=== PATIENT | female | born 1945 | race African-American/Black ===

== ENCOUNTER → 2016-03-30 | Outpatient (CLI) | payer OTHER ==
[~2016-03-30] MED LIST: ASPIRIN325 PO; COMBIVENT INH; HYDROCODON-ACE1 EAC6 PO; KEFLEX500 MG PO; LORTAB 5 MG/5001 TA1 PO; NORVASC 5 MG TAB5 MG OR; NORVASC 5 MG TAB5 MG PO; NOVOLIN 70100 UNIT/5 SQ; OXYBUTYNIN 5 MG5 M2 PO; PROMETHAZI6.25 MG/2 PO; SIMVASTATIN40 MG PO; TOPROL XL50 MG PO
== END ==
LOC: HYPER 03-15 07:05
DX: I87.2 Venous insufficiency (chronic) (peripheral) (principal); L97.511 Non-pressure chronic ulcer of other part of right foot limited to breakdown of skin; E11.69 Type 2 diabetes mellitus with other specified complication; R60.0 Localized edema; I73.9 Peripheral vascular disease, unspecified; Z79.4 Long term (current) use of insulin; F17.210 Nicotine dependence, cigarettes, uncomplicated

== ENCOUNTER → 2016-04-27 | Outpatient (CLI) | payer OTHER | LOC: HYPER 07:10 | DX: S81.802D Unspecified open wound, left lower leg, subsequent encounter (principal); E11.51 Type 2 diabetes mellitus with diabetic peripheral angiopathy without gangrene; I10 Essential (primary) hypertension; I87.2 Venous insufficiency (chronic) (peripheral); Z86.73 Personal history of transient ischemic attack (TIA), and cerebral infarction without residual deficits; F17.210 Nicotine dependence, cigarettes, uncomplicated; Z72.89 Other problems related to lifestyle; X58.XXXD Exposure to other specified factors, subsequent encounter ==

== ENCOUNTER → 2016-06-21 | Outpatient (CLI) | payer OTHER | LOC: HYPER 07:09 | DX: E11.622 Type 2 diabetes mellitus with other skin ulcer (principal); L97.811 Non-pressure chronic ulcer of other part of right lower leg limited to breakdown of skin; R60.0 Localized edema; E11.51 Type 2 diabetes mellitus with diabetic peripheral angiopathy without gangrene; I87.2 Venous insufficiency (chronic) (peripheral); I10 Essential (primary) hypertension; F17.210 Nicotine dependence, cigarettes, uncomplicated; Z79.4 Long term (current) use of insulin; Z86.73 Personal history of transient ischemic attack (TIA), and cerebral infarction without residual deficits; Z89.429 Acquired absence of other toe(s), unspecified side; Z72.89 Other problems related to lifestyle ==

== ENCOUNTER → 2016-07-19 | Outpatient (CLI) | payer OTHER | LOC: HYPER 07:08 | DX: E11.622 Type 2 diabetes mellitus with other skin ulcer (principal); L97.811 Non-pressure chronic ulcer of other part of right lower leg limited to breakdown of skin; E11.51 Type 2 diabetes mellitus with diabetic peripheral angiopathy without gangrene; I87.2 Venous insufficiency (chronic) (peripheral); I69.352 Hemiplegia and hemiparesis following cerebral infarction affecting left dominant side; I10 Essential (primary) hypertension; F17.210 Nicotine dependence, cigarettes, uncomplicated; Z79.4 Long term (current) use of insulin; Z72.89 Other problems related to lifestyle ==

== ENCOUNTER → 2016-08-16 | Outpatient (CLI) | payer OTHER | LOC: HYPER 08-06 14:02 | DX: E11.621 Type 2 diabetes mellitus with foot ulcer (principal); L97.521 Non-pressure chronic ulcer of other part of left foot limited to breakdown of skin; I89.0 Lymphedema, not elsewhere classified; I10 Essential (primary) hypertension; E11.51 Type 2 diabetes mellitus with diabetic peripheral angiopathy without gangrene; I87.2 Venous insufficiency (chronic) (peripheral); F17.200 Nicotine dependence, unspecified, uncomplicated; Z79.4 Long term (current) use of insulin; Z86.73 Personal history of transient ischemic attack (TIA), and cerebral infarction without residual deficits; Z89.429 Acquired absence of other toe(s), unspecified side; Z72.89 Other problems related to lifestyle ==

== ENCOUNTER → 2016-08-22 | Outpatient (CLI) | payer OTHER | LOC: MRI 14:08 | PROVIDERS: Emergency Medicine | DX: L97.529 Non-pressure chronic ulcer of other part of left foot with unspecified severity (principal) ==

== ENCOUNTER → 2016-09-06 | Outpatient (CLI) | payer OTHER | LOC: HYPER 07:11 | DX: E11.621 Type 2 diabetes mellitus with foot ulcer (principal); I87.2 Venous insufficiency (chronic) (peripheral); L97.521 Non-pressure chronic ulcer of other part of left foot limited to breakdown of skin; E11.51 Type 2 diabetes mellitus with diabetic peripheral angiopathy without gangrene; R60.0 Localized edema; I10 Essential (primary) hypertension; Z79.4 Long term (current) use of insulin; Z86.73 Personal history of transient ischemic attack (TIA), and cerebral infarction without residual deficits; Z72.89 Other problems related to lifestyle; Z89.429 Acquired absence of other toe(s), unspecified side ==

== ENCOUNTER → 2016-09-27 | Outpatient (CLI) | payer OTHER | LOC: HYPER 06:58 | DX: E11.621 Type 2 diabetes mellitus with foot ulcer (principal); L97.521 Non-pressure chronic ulcer of other part of left foot limited to breakdown of skin; S91.102D Unspecified open wound of left great toe without damage to nail, subsequent encounter; E11.51 Type 2 diabetes mellitus with diabetic peripheral angiopathy without gangrene; I87.2 Venous insufficiency (chronic) (peripheral); I10 Essential (primary) hypertension; G81.94 Hemiplegia, unspecified affecting left nondominant side; I89.0 Lymphedema, not elsewhere classified; R26.9 Unspecified abnormalities of gait and mobility; F17.200 Nicotine dependence, unspecified, uncomplicated; Z86.73 Personal history of transient ischemic attack (TIA), and cerebral infarction without residual deficits; Z89.429 Acquired absence of other toe(s), unspecified side; Z79.4 Long term (current) use of insulin; Z72.89 Other problems related to lifestyle; X58.XXXD Exposure to other specified factors, subsequent encounter ==

== ENCOUNTER → 2016-10-12 | Outpatient (CLI) | payer OTHER | LOC: HYPER 07:12 | DX: E11.621 Type 2 diabetes mellitus with foot ulcer (principal); I87.2 Venous insufficiency (chronic) (peripheral); L97.521 Non-pressure chronic ulcer of other part of left foot limited to breakdown of skin; I89.0 Lymphedema, not elsewhere classified; R60.0 Localized edema; E11.51 Type 2 diabetes mellitus with diabetic peripheral angiopathy without gangrene; F17.200 Nicotine dependence, unspecified, uncomplicated; Z79.4 Long term (current) use of insulin; Z86.73 Personal history of transient ischemic attack (TIA), and cerebral infarction without residual deficits; Z72.89 Other problems related to lifestyle; Z89.429 Acquired absence of other toe(s), unspecified side ==

== ENCOUNTER 2016-11-06 09:30 | Inpatient (IN) | payer OTHER ==
[~2016-11-06] VITALS: Ht 172.7 cm; Wt 57.9 kg
--- NOTE | ~2016-11-06 | HC ---
[facility] [place] [address] CONSULTATION Name: CAPRI BOSS Room #: 457-P [facility] IN .R.#: [id number] Admission: 11/06/16 Attend Phys: Diomedes Logan DO Discharge: Date of : 49 Report #: [id number] THIS REPORT FOR: //name// CC: Diomedes FISHER PCP DATE OF SERVICE: 11/06/2016 INFECTIOUS DISEASE CONSULTATION ATTENDING PHYSICIAN: Dr. Logan. REASON FOR EVALUATION: Necrotizing foot infection, probably extends deeper than the soft tissue. HISTORY OF PRESENT ILLNESS: Chart reviewed, the patient examined. This is a 71-year-old female with diabetes mellitus type 2. She apparently has known vasculopathy, has had chronic wound involving her left foot, specifically the plantar site, been followed by the wound care who over the course of the last 4-5 days had progressive weakness and poor appetite. She suspects significant weight loss, although it is difficult to ascertain. It is unclear if she has had fevers. Denies dyspnea, abdominal-related complaints. She is at least mildly encephalopathic. On evaluation, she was noted to have a marked leukocytosis with white count 37,000, mildly elevated lactic acid to 2.7. CT of the lower extremity showed subcutaneous and deep gas noted throughout the foot extends to the joint space, located throughout the tarsal bone to a calcaneus, cuboid, also the distal tibia, posterolateral extension to ____ regions throughout the deep tissues structures of the foot. Chest x-ray, nothing acute, has been empirically on broad-spectrum therapy with vancomycin, piperacillin, and tazobactam. Has been evaluated by Surgery, recommended urgent intervention. To this point, she has refused, unclear as to the specific reason, although she has been consistent. ALLERGIES: None known. MEDICATIONS: As noted above, oxybutynin, aspirin, amlodipine, vancomycin, Zosyn, insulin. PAST MEDICAL HISTORY: Diabetes mellitus type 2, insulin requiring; hypertension; has cerebrovascular disease with previous stroke; is nonambulatory; long-standing diabetic foot ulcer. SOCIAL HISTORY: Smoke a half a pack a day tobacco. Occasional ethanol, no illicit drug use. FAMILY HISTORY: Noncontributory. [facility] [address] [place] [address] CONSULTATION Name: CAPRI BOSS Room #: 457-P [facility] IN [facility].#: [id number] Admission: 11/06/16 Attend Phys: Diomedes Logan DO Discharge: Date of : 49 Report #: [id number] REVIEW OF SYSTEMS: As above. PHYSICAL EXAMINATION: GENERAL: She appears chronically ill, almost cachectic, undernourished, in mild distress. She is lethargic. VITAL SIGNS: Temperature 98.1, pulse 103, respirations 16, blood pressure 136/81. SKIN: Warm, dry. NECK: Supple. LUNGS: Diminished breath sounds. A few scattered crackles. HEART: Regular. Borderline tachycardic and has a soft systolic murmur. ABDOMEN: Soft. There are no apparent peritoneal signs. EXTREMITIES: Left foot has plantar ulcers, extensive ____ noted at the site. There is clear malodor, clearly changes are suggestive of ischemia as well. ASSESSMENT: Necrotizing infection involving the left foot. The patient with diabetes. I think there is clear evidence of deeper involvement at this point. Really definitive treatment would be surgical, likely requiring leg amputation. At this point, she is refusing. We will continue our broad-spectrum antimicrobial therapy for presumed polymicrobial etiology including some anaerobes. I deeply concerned about this is a life-threatening type infection, did voice that to her and she was adamant she did not want surgery and we will see if we can improve her situation with conservative measures. <ELECTRONICALLY SIGNED> By: Evan Dale MD 11/07/16 0808 1730 2201 Evan Dale MD /nt
--- NOTE | ~2016-11-06 | HC ---
[facility] [place] [address] CONSULTATION Name: CAPRI BOSS Room #: 457-P [facility] IN M.R.#: [id number] Admission: 11/06/16 Attend Phys: Diomedes Logan DO Discharge: Date of : 49 Report #: [id number] THIS REPORT FOR: //name// CC: Diomedes PINO DATE OF SERVICE: 11/06/2016 REASON FOR CONSULTATION: Gangrene of left foot in a diabetic patient well known to Dr. Wayne Curtis. HISTORY OF PRESENT ILLNESS: The patient is a patient of Dr. Wayne Curtis at [facility]. She has been seen in the [facility] wound care clinic since at least August 2015 with edema with ulcerations of the lower legs and problems with diabetic foot ulcers. Most recently on September 06 the patient was seen in [facility] with a necrotic wound on the left plantar foot which had a foul odor and some wound on the left great toe tip from trauma. Wound was treated with some improvement mid September, but it was noted that there was some exposed tendon. The patient was seen again in the clinic on October 12. There was some foul odor on the dressing when the dressing was removed with some exposed tendons. The patient did present herself to the Emergency Room today at [facility]. She has scheduled appointment with Dr. Wayne Curtis for tomorrow, November 08, however, felt that her foot had worsened with more drainage and foul odor, felt that she should not wait until the clinic appointment. I was called to see in consultation by the Emergency Room physician. Prior to my arriving, Dr. Reza Whitaker has seen the patient and did feel that based on the condition of her foot with maryann gangrene of the left foot, a left below-knee amputation would be required; however, the patient would not consent to this at this time, wished to speak with her family members and her side laster. PAST MEDICAL HISTORY: 1. Diabetes mellitus type 2. 2. Edema of lower extremities with wounds. 3. History of left-sided hemiplegia. 4. Hypertension. 5. Peripheral vascular disease of the lower extremities. 6. Chronic venous insufficiency of lower extremities. ALLERGIES: No known drug allergies. MEDICATIONS: Include Lortab, Combivent Respimat, amlodipine, regular insulin, Novolin insulin, oxybutynin, Lortab, oxycodone, doxycycline, Bactrim. REVIEW OF SYSTEMS: The patient noticed a foul odor from the foot. The [place] [address] CONSULTATION Name: CAPRI BOSS Room #: 457-P [facility] IN .R.#: [id number] Admission: 11/06/16 Attend Phys: Diomedes Logan DO Discharge: Date of : 49 Report #: [id number] LABORATORY DATA: Today, white blood count 37,600. Creatinine 1.2, BUN ____. PHYSICAL EXAMINATION: GENERAL: Shows a chronically ill-appearing -[place]er female who is alert, lucid and conversant. VITAL SIGNS: Temperature 98.2, blood pressure 133/70, heart rate 102. HEENT: Mucous membranes are somewhat dry. LUNGS: Respirations are unlabored. ABDOMEN: Soft. EXTREMITIES: Shows edema of her left lower leg and left foot, there is a distinct foul odor. Open wounds are present on the patient's left foot with some purulent foul-smelling drainage. Examination of the left foot shows a 2.5 x 3 cm open ulcer on the plantar aspect of the foot with foul odor. Clinically, this appeared to be gangrenous. This was associated swelling of the foot, ankle, and lower leg. IMPRESSION AND PLAN: Gangrene of left foot with possible necrotizing soft tissue infection. White blood count 37,600 in a patient with insulin-dependent diabetes and known peripheral vascular disease of that extremity. Dr. Reza Whitaker, orthopedic surgeon has counseled the patient that bony amputation would be advisable as a limb salvaging and life saving procedure. I agree with that assessment. The patient is deciding whether she will allow an amputation, wishes to consult with family members and her side laster. The patient will be admitted with broad-spectrum IV antibiotic coverage and consult infectious disease, vigorous IV hydration while she decides. Wound will be dressed with Silvadene and a dry dressing. Wound care team will follow and notify Dr. Curtis. <ELECTRONICALLY SIGNED> By: Mateus Nunez MD 11/10/16 1338 1711 10 Mateus Nunez MD /nt
--- NOTE | ~2016-11-06 | O ---
[facility] [place] [address] OPERATIVE REPORT Name: CAPRI BOSS Room #: 457-P [facility] IN M.R.#: [id number] Admission: 11/06/16 Attend Phys: Diomedes Logan DO Discharge: 11/12/16 Date of : 49 Report #: [id number] THIS REPORT FOR: //name// CC: FAM unknown Wayne Curtis DATE OF SERVICE: 11/07/2016 PREOPERATIVE DIAGNOSIS: Left leg gangrene. POSTOPERATIVE DIAGNOSIS: Left leg gangrene. PROCEDURE: Left below the knee amputation. SURGEON: Dakota Chatterjee M.D. ANESTHESIA: General. ESTIMATED BLOOD LOSS: 20 mL. DRAINS: One Hemovac drain was placed. TOURNIQUET TIME: 45 minutes. DESCRIPTION OF PROCEDURE: The patient brought to the operating room where she was placed under general anesthesia. Once under adequate general anesthesia, her left lower extremity was prepped and draped in sterile manner. A fishmouth incision about the mid portion of the mid to distal third of the tibia was then made. A sharp dissection was carried down to the bone. In the posterior compartment of the leg, there was purulence identified. We then proceeded to identify the posterior tibial vessels and these were then clamped and subsequently, the tibia and the fibula were transected with the oscillating saw and beveled anteriorly. The wound and leg was then irrigated copiously. The posterior tibial vessels were suture ligated with 0 silk suture. Pulsatile lavage was utilized to irrigate the wound. Any bleeding vessels were cauterized. The wound was irrigated copiously and closed over a Hemovac drain with #1 Vicryl in the deep fascia, 2-0 Vicryl and subcutaneous tissues and brittaney for the skin. The wounds were dressed with Xeroform, 4 x 4s, and sterile soft compressive dressing was placed. Tourniquet was let down approximately 45 minutes. There were no complications from the procedure. The patient tolerated the procedure well and went to the recovery room without incident. By: 1149 [id number] Dakota Chatterjee MD /reyes
--- NOTE | ~2016-11-06 | HC ---
[facility] [place] [address] CONSULTATION Name: CAPRI BOSS Room #: 457-P [facility] IN .R.#: [id number] Admission: 11/06/16 Attend Phys: Diomedes Logan DO Discharge: Date of : 47 Report #: [id number] THIS REPORT FOR: //name// CC: Diomedes FISHER PCP DATE OF SERVICE: 11/08/2016 HISTORY OF PRESENT ILLNESS: The patient is a 71-year-old -Cuban female with insulin-dependent diabetes mellitus and a prior CVA from 1989 with dense left hemiplegia. She was noted to develop left leg gangrene with cellulitis, sepsis and evidence of a necrotizing infection. She ended up undergoing a left below knee amputation on 11/07/2016. She is continuing to be followed regarding her cellulitis and sepsis and is on IV antibiotics. She is feeling better after the amputation. We are seeing her in rehabilitation medicine consultation. PAST MEDICAL HISTORY: Includes diabetes mellitus and hypertension. She had the past CVA as noted above. History of tobacco abuse. MEDICATIONS: Please see the full medication listing. ALLERGIES: No known drug allergies. SOCIAL HISTORY: Lives in an apartment. There are 2 caregiver that come and stay with her, they work 12 hour shifts. One of the caregivers is a pretty big gentle gentleman who apparently picks her up into the power wheelchair. She is able to get around in the power wheelchair. She is then lifted onto the raised toilet seat. She is able to use some basic ADLs herself including eating and grooming and some limited dressing activities. REVIEW OF SYSTEMS: Do not offer any current complaints of chest pain, shortness of breath, abdominal discomfort. She does have a history of diabetes. Denies any focal pain complaints. PHYSICAL EXAMINATION: GENERAL: A slender 71-year-old -Cuban female in no obvious distress. VITAL SIGNS: Last recorded temperature 98.8, pulse 89, respirations 16, blood pressure 102/65. The patient is alert, pleasant. HEENT: Appeared to be benign. NEUROLOGIC: Cranial nerves are grossly intact. She has functional range of motion of the right upper extremity without focal weakness. Left upper extremity is densely plegic. She does have flexion positioning of her left wrist with some contracture formation and decreased left elbow extension. No volitional movement of the left upper extremity with chronic contracture formation. Left lower extremity reveals the below knee amputation with dressing [facility] [address] [place] [address] CONSULTATION Name: CAPRI BOSS Room #: 457-P [facility] IN ..#: [id number] Admission: 11/06/16 Attend Phys: Diomedes Logan DO Discharge: Date of : 49 Report #: [id number] Right lower extremity reveals a darkened right large toe. No obvious erythema. Appears to have chronic distal lower extremity changes on the right. Sensation was decreased, but present to proprioception of her right large toe. Strength of the right lower extremity is probably a grade 3+ to 4-/5. DTRs were trace to 1. She has decreased sensation in the left upper and left lower extremity to simultaneous stimulation. ASSESSMENT: A 71-year-old -Cuban female with the following problem list: 1. Cellulitis with necrotizing infection, left lower extremity, now status post below-knee amputation, 11/07/2016. 2. Sepsis. 3. Premorbid cerebrovascular accident with left hemiplegia. 4. Insulin-dependent diabetes mellitus. 5. Hypertension. 6. Tobacco abuse. PLAN: Therapy evaluations are underway. She certainly may be a candidate for a short acute in-hospital inpatient rehabilitation stay. We will have her undergo therapy assessments. We will need to assess her current function compared to her premorbid status, any potential equipments, adjustments, etc. We will be glad to follow along with you regarding her rehab therapy needs. By: [id number] Reza Kamara MD /
--- NOTE | ~2016-11-06 | EKG ---
[place] [address] 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: [facility] : 1945 Requested By: Pramod Phipps Order Number: [id number] MD: Nghia Lyon Measurements Intervals [place] Rate: 113 P: 90 OK: 174 QRS: 7 QRSD: 86 T: 159 QT: 383 QTc: 526 Interpretive Statements Sinus tachycardia Ventricular premature complex Consider right atrial enlargement Nonspecific ST and T wave abnormality Prolonged QT interval Compared to ECG 07/06/2010 12:06:58 No significant change was found Electronically Signed On 11-08-2016 12:45:19 CDT by Nghia Lyon [email or web address] <ELECTRONICALLY SIGNED> By: Nghia Lyon MD, [facility] 11/08/16 1245 1132 1132 Nghia Lyon MD, [facility] /EPI
--- NOTE | ~2016-11-06 | S ---
[facility] [place] [address] SURGICAL PATH RPT PROCEDURE Name: MARGARITA BOSS Room #: 457-P ADM IN M.R.#: [id number] Admission: 11/06/16 Date of : 49 Discharge: Report #: [id number] Path Case #: [id number] PATHOLOGY REPORT COLLECTION DATE: 11/07/2016 RECEIVED DATE: 11/07/2016 SUBMITTING PHYS: Dr. Dakota Chatterjee OTHER PHYS: Dr. Diomedes Logan SPECIMEN(S) RECEIVED: A.Left lower leg * * * * * * * * * * * * FINAL DIAGNOSIS: "Left lower leg," amputation: - Skin and subcutaneous tissue with acute and chronic inflammation, necrosis, granulation tissue, fat necrosis, and pseudoepitheliomatous hyperplasia; surgical margin with significant subcutaneous tissue acute inflammation. - Skeletal muscle with focal markedly atrophic changes. - Blood vessels with calcific atherosclerosis. - Previous digit amputation. (CLW:; 11/09/2016) PATHOLOGIST: Lesvia Kelley M.D. REPORT ELECTRONICALLY SIGNED BY: Lesvia Kelley M.D. DATE/TIME: 11/09/2016 21:45 * * * * * * * * * * * * GROSS PATHOLOGY: The specimen is received fresh, labeled "Margarita Boss, left lower leg" and consists of a below the knee amputation specimen measuring 25.2 cm from the margin resection to the medial malleolus and 24.3 cm from the heel to the tip of the great toe. There is a 1.5 cm portion of exposed tibia and 4.2 cm portion of exposed fibula. The soft tissue at the margin has a congested, brown-red appearance. The skin is tellez-brown, thickened and wrinkled. The second toe is absent. The first, third and fourth toes have a brown-black, desiccated appearance. A nail is present on each toe. The leathery, ovoid lesion is noted on the distal end of the first toe measuring 1.8 cm. Along the medial plantar surface an ovoid ulceration is noted measuring 3.3 cm. No additional abnormalities are noted on the external surface. Sectioning shows the soft tissue to have an ulcerated, brown-red, and necrotic appearance. This extends throughout the specimen to within 1.0 cm of the soft tissue margin. The two major arteries show minimal, focal occlusion by bright [address] [address] SURGICAL PATH RPT PROCEDURE Name: GERAMARGARITA Room #: 457-P ADM IN M.R.#: [id number] Admission: 11/06/16 Date of : 49 Discharge: Report #: [id number] Path Case #: [id number] yellow, atheromatous plaque. The stenosis is approximate 5%. No additional abnormalities are noted. Professional [employer] sections are submitted as follows: A1 - soft tissue from margin resection A2 - external lesions A3 - necrotic internal tissues A4 - anterior tibial artery (HASEEB; 11/08/2016) CLINICAL HISTORY: Infected left leg INITIAL CPT CODE(S): A; 00435 Professional services performed by [facility] at [facility] [address], [place] [address] Technical services performed by [facility] at [address] [place] [address], [address], [place] [address]. [facility] [address] [place] [address] PHONE: [phone] DIRECTOR: Cortez Hedrick M.D. * * * END OF REPORT * * *
--- NOTE | ~2016-11-06 | EKG ---
[place] [address] [facility] [place] [place] [address] ELECTROCARDIOGRAM REPORT Name: CAPRI BOSS Room #: 457-P ADM IN M.R.#: [id number] Admission: 11/06/16 Attend Phys: Diomedes Logan DO Discharge: Date of : 49 Report #: [id number] THIS REPORT FOR: //name// 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: [facility] : 1945 Requested By: Pramod Phipps Order Number: [id number] MD: Nghia Lyon Measurements Intervals [place] Rate: 113 P: 86 AL: 184 QRS: 0 QRSD: 102 T: 132 QT: 336 QTc: 461 Interpretive Statements Sinus tachycardia Ventricular premature complex Right atrial enlargement Nonspecific ST and T wave abnormality Baseline wander in lead(s) V2 Compared to ECG 07/06/2010 12:06:58 Ventricular premature complex(es) now present Nonspecific ST and T wave abnormality now present Electronically Signed On 11-08-2016 12:43:29 CDT by Nghia Lyon [email or web address] <ELECTRONICALLY SIGNED> By: Nghia Lyon MD, [facility] 11/08/16 1243 1010 1010 Nghia Lyon MD, [facility] /EPI
--- NOTE | ~2016-11-06 | HC ---
[facility] [place] [address] CONSULTATION Name: CAPRI BOSS Room #: 457-P [facility] IN ..#: [id number] Admission: 11/06/16 Attend Phys: Diomedes Logan DO Discharge: Date of : 47 Report #: [id number] THIS REPORT FOR: //name// CC: Diomedes Logan NO PCP CHIEF COMPLAINT: Gangrenous left foot with necrotizing fascitis. HISTORY OF PRESENT ILLNESS: This frail 71-year-old female with multiple chronic medical problems and severe diabetes has apparently had a progressive left foot wound for the past month. She has been seeing Dr. Wayne Curtis as an outpatient and I believe had some visiting nursing care more recently. I believe she has been on oral antibiotics. The foot has become clearly worse with a clear open wound over the medial aspect and some generalized swelling throughout the foot and leg with drainage and odor. She came to Emergency Room today for further evaluation. She appears to be very frail and weak. She is febrile and her white count is 37,600 with 94% neutrophils. Her hemoglobin is 12.5. Her BUN is elevated at 59 and creatinine minimally elevated at 1.2. Her glucose is markedly elevated at 442 and C-reactive protein is 323 and albumin is markedly diminished at 2.0. She has had an ultrasound study of the extremity, which does not reveal evidence of DVT. CT scan of the foot reveals bony abnormalities and gas in the soft tissues consistent with a gangrenous change and necrotizing fasciitis extending up to the hind foot and ankle level. PHYSICAL EXAMINATION: At the time of my evaluation, she is alert and oriented and states that she is able to make her own medical decisions. She notes that she has had progressive left foot problems over the past month and understands that they are clearly more severe. However, at this point, she is entirely unwilling to consider any surgical treatment. She denies any other areas of significant discomfort. She denies problems in the upper extremities nor the opposite right lower extremity. Objectively, she is rather cachectic, but skin and soft tissues in other areas appear to be intact. The left lower extremity demonstrates some brawny edema from the knee down to the foot. The foot is somewhat erythematous. There is an open malodorous wound over the medial border of the foot consistent with gangrenous change. Pulses are not palpable. ASSESSMENT AND PLAN: I have had a very lengthy and very direct discussion with the patient explaining that this is a very serious and progressive infection, which undoubtedly require surgical treatment and may result in spreading the infection, further sepsis and . I have explained that the foot is clearly beyond any possibility of salvage and therefore, I would suggest a below-knee amputation at this point. I have suggested going ahead on an emergent basis and I have already called the OR crew and anesthesia in for that purpose. Despite this very direct discussion, she is adamantly opposed to any surgery today. I have explained that the infection will undoubtedly get worse and her generalized sepsis will undoubtedly get worse as well. I suspect this may result in other organ failure and may result in her . She states she understands this and [facility] [address] [place] [address] CONSULTATION Name: CAPRI BOSS Room #: 457-P [facility] IN .R.#: [id number] Admission: 11/06/16 Attend Phys: Diomedes Logan DO Discharge: Date of : 47 Report #: [id number] these comments have been witnessed by both the nurse and Emergency Room physician who will document this in the medical record as well. I have tried to discuss with family members or anyone else she might ask to be involved in this decision. I have reached her cousin, Shirley Gudino in [place] and I have had this same discussion with her and also they have talked over the phone together for quite some time. Despite this discussion, the patient remains adamantly opposed to any surgery and has therefore refused surgical treatment against medical advice. She plans to talk further with family and family state they will try to come to [place] today if possible. She is also waiting to talk with her product marketing programs manager from [facility] and we have tried to make that phone call on several occasions, but have thus far been unsuccessful in reaching him. Given this, I do not think we have much else to do aside from supportive care with antibiotics and general medical management. We will admit her for that purpose and her care will be directed by Dr. Bailey who has noted also the severity of these issues. I have explained that we can proceed with surgical amputation at any point that she wishes, but my preference would certainly be to proceed more quickly this afternoon rather than wait until later. She states she will be unwilling to even consider surgery until tomorrow after she has had a chance to visit further with family and her product marketing programs manager. Given this, I will plan to be available and we will discuss with the patient and other members whenever they are available. In general, however, I feel surgical amputation is the most reasonable option. <ELECTRONICALLY SIGNED> By: Reza Whitaker MD 11/07/16 0710 [id number] [id number] Reza Whitaker MD /nt
[2016-11-06 09:31] VITALS: BP 133/83
[2016-11-06 11:04] LABS: HEMATOCRIT 39.1 % (37.0-47.0); HEMOGLOBIN 12.5 gm/dL (12.0-15.0); MCH 26.1 pg (26.0-34.0); MCHC 32.1 g/dL (28.0-37.0); MCV 81.5 fL (80.0-100.0); PLATELET COUNT 443 thou/uL (150-400); RDW 14.6 % (10.5-14.5); WBC 37.6 thou/uL (4.0-11.0)
[2016-11-06 11:07] LABS: MANUAL DIFF YES
[2016-11-06 11:13] LABS: CALCIUM 10.7 mg/dL (8.5-10.1); CREATININE 1.2 mg/dL (0.6-1.0); POTASSIUM 3.7 mmol/L (3.5-5.1)
[2016-11-06 11:19] LABS: TOTAL BILIRUBIN 0.5 mg/dL (<0.1-1.0); TOTAL PROTEIN 9.1 g/dL (6.4-8.2)
[2016-11-06 11:57] LABS: URINE BILIRUBIN NEGATIVE (Negative); URINE BLOOD TRACE (Negative); URINE COLOR YELLOW; URINE GLUCOSE-RANDOM* 3+ (Negative); URINE KETONES 1+ (Negative); URINE LEUKOCYTES-REFLEX NEGATIVE (Negative); URINE PROTEIN (DIPSTICK) NEGATIVE (Negative); URINE SPECIFIC GRAVITY <= 1.005 (1.003-1.035)
[2016-11-06 11:59] LABS: ABSOLUTE NEUTROPHILS 36.1 thou/uL (1.4-8.2); METAMYELOCYTES 2 %; TOTAL CELL COUNT 100
[2016-11-06 12:00] LABS: ANISOCYTOSIS SLIGHT
[2016-11-06 13:07] LABS: APTT 28.7 Seconds (24.5-32.8); INR 1.1; PROTIME 11.1 Seconds (9.3-11.4)
[2016-11-06 15:13] VITALS: BP 145/113
[2016-11-06 16:05] VITALS: BP 133/70
[2016-11-06 16:12] VITALS: BP 136/81
[2016-11-06 20:01] VITALS: BP 111/66
[2016-11-07] VITALS (7 sets, daily range): BP systolic 91–129; BP diastolic 51–73
[2016-11-07 07:41] LABS: MCH 25.9 pg (26.0-34.0)
[2016-11-07 07:43] LABS: HEMATOCRIT 32.1 % (37.0-47.0); MCHC 31.5 g/dL (28.0-37.0); MCV 82.1 fL (80.0-100.0); RBC 3.91 mil/uL (4.20-5.00); RDW 14.9 % (10.5-14.5)
[2016-11-07 07:46] LABS: MANUAL DIFF YES
[2016-11-07 07:48] LABS: HEMOGLOBIN 10.1 gm/dL (12.0-15.0); PLATELET COUNT 335 thou/uL (150-400); WBC 40.2 thou/uL (4.0-11.0)
[2016-11-07 07:49] LABS: CALCIUM 9.2 mg/dL (8.5-10.1); CREATININE 0.8 mg/dL (0.6-1.0)
[2016-11-07 07:52] LABS: POTASSIUM 2.5 mmol/L (3.5-5.1)
[2016-11-07 09:36] LABS: METAMYELOCYTES 2 %; MYELOCYTES 1 %; TOTAL CELL COUNT 100
[2016-11-07 09:37] LABS: ANISOCYTOSIS 1+
[2016-11-07 18:21] LABS: MAGNESIUM 1.7 mg/dL (1.8-2.4); POTASSIUM 3.2 mmol/L (3.5-5.1)
[2016-11-08 04:24] VITALS: BP 115/71
[2016-11-08 06:03] LABS: HEMATOCRIT 28.9 % (37.0-47.0); HEMOGLOBIN 9.1 gm/dL (12.0-15.0)
[2016-11-08 08:42] VITALS: BP 102/65
[2016-11-08 09:33] LABS: MCHC 31.3 g/dL (28.0-37.0); MCV 83.1 fL (80.0-100.0); RBC 3.51 mil/uL (4.20-5.00); WBC 35.4 thou/uL (4.0-11.0)
[2016-11-08 09:34] LABS: BUN 17 mg/dL (7-18); CALCIUM 8.5 mg/dL (8.5-10.1); CREATININE 0.5 mg/dL (0.6-1.0); GLUCOSE 72 mg/dL (74-106); PLATELET COUNT 228 thou/uL (150-400)
[2016-11-08 09:35] LABS: MANUAL DIFF YES
[2016-11-08 10:11] LABS: ABSOLUTE NEUTROPHILS 33.6 thou/uL (1.4-8.2); PLATELET ESTIMATE NORMAL; TOTAL CELL COUNT 100
[2016-11-08 10:21] LABS: HEMATOCRIT 29.2 % (37.0-47.0); HEMOGLOBIN 9.1 gm/dL (12.0-15.0)
[2016-11-08 17:14] VITALS: BP 117/75
[2016-11-08 19:59] VITALS: BP 95/61
[2016-11-09 05:18] VITALS: BP 116/74
[2016-11-09 07:09] LABS: HEMATOCRIT 28.5 % (37.0-47.0); MCH 25.8 pg (26.0-34.0); MCHC 31.7 g/dL (28.0-37.0); MCV 81.5 fL (80.0-100.0); PLATELET COUNT 179 thou/uL (150-400); WBC 34.8 thou/uL (4.0-11.0)
[2016-11-09 07:13] LABS: MANUAL DIFF YES
[2016-11-09 07:24] LABS: CREATININE 0.3 mg/dL (0.6-1.0); POTASSIUM 4.1 mmol/L (3.5-5.1)
[2016-11-09 08:25] LABS: ABSOLUTE NEUTROPHILS 33.1 thou/uL (1.4-8.2); METAMYELOCYTES 1 %; TOTAL CELL COUNT 100
[2016-11-09 08:28] VITALS: BP 118/75
[2016-11-09 08:28] LABS: ANISOCYTOSIS SLIGHT
[2016-11-09 12:25] VITALS: BP 111/65
[2016-11-09 15:54] VITALS: BP 111/65
[2016-11-09 16:04] VITALS: BP 88/56
[2016-11-09 21:10] VITALS: BP 108/55
[2016-11-10 03:55] VITALS: BP 115/70
[2016-11-10 06:15] LABS: HEMATOCRIT 26.4 % (37.0-47.0); HEMOGLOBIN 8.5 gm/dL (12.0-15.0); MCH 26.1 pg (26.0-34.0); MCHC 32.2 g/dL (28.0-37.0); RBC 3.26 mil/uL (4.20-5.00); RDW 14.8 % (10.5-14.5); WBC 22.1 thou/uL (4.0-11.0)
[2016-11-10 06:26] LABS: CALCIUM 7.7 mg/dL (8.5-10.1); CREATININE 0.5 mg/dL (0.6-1.0); POTASSIUM 4.4 mmol/L (3.5-5.1)
[2016-11-10 09:53] VITALS: BP 121/59
[2016-11-10 09:56] VITALS: BP 121/59
[2016-11-10 09:57] VITALS: BP 173/88
[2016-11-10 18:32] VITALS: BP 117/85
[2016-11-10 20:01] VITALS: BP 96/59
[2016-11-11 04:11] VITALS: BP 115/65
[2016-11-11 06:37] LABS: CALCIUM 7.7 mg/dL (8.5-10.1); CREATININE 0.6 mg/dL (0.6-1.0); HEMATOCRIT 26.2 % (37.0-47.0); HEMOGLOBIN 8.4 gm/dL (12.0-15.0); MCH 26.4 pg (26.0-34.0); MCHC 32.2 g/dL (28.0-37.0); MCV 81.9 fL (80.0-100.0); POTASSIUM 4.2 mmol/L (3.5-5.1); RBC 3.2 mil/uL (4.20-5.00); RDW 14.9 % (10.5-14.5); WBC 18.2 thou/uL (4.0-11.0)
[2016-11-11 07:43] VITALS: BP 128/72
[2016-11-11 12:21] VITALS: BP 97/57
[2016-11-11 16:02] VITALS: BP 100/60
[2016-11-11 19:30] VITALS: BP 116/73
[2016-11-12 03:45] VITALS: BP 113/61
[2016-11-12 04:36] LABS: HEMATOCRIT 26.1 % (37.0-47.0); HEMOGLOBIN 8.3 gm/dL (12.0-15.0); MCH 26.1 pg (26.0-34.0); MCV 81.6 fL (80.0-100.0); RBC 3.19 mil/uL (4.20-5.00); RDW 14.8 % (10.5-14.5); WBC 16.1 thou/uL (4.0-11.0)
[2016-11-12 04:48] LABS: CALCIUM 7.9 mg/dL (8.5-10.1); CREATININE 0.7 mg/dL (0.6-1.0)
[2016-11-12 07:30] VITALS: BP 114/70
[2016-11-12] MEDS ORDERED: HYDROCODON-ACE1 EAC7 PO (09:14)
[2016-11-12] MEDS ORDERED: NOVOLIN 70100 UNIT/5 SQ (09:14)
[2016-11-12] MEDS ORDERED: AUGMENTIN 875875 MG PO (09:14)
[2016-11-12 09:27] VITALS: BP 111/65
== END 2016-11-12 11:14 | disposition home health service (06) | DRG 853 ==
LOC: ER 09:30 → EROBS 12:43 → 4W 12:43
PROVIDERS: Family Medicine; Orthopaedic Surgery Foot and Ankle Surgery; Physician Assistant
PROC: 0Y6J0Z3 Detachment at Left Lower Leg, Low, Open Approach (ICD-10-PCS; principal; 2016-11-07)
DX: A41.9 Sepsis, unspecified organism (principal); M72.6 Necrotizing fasciitis; E43 Unspecified severe protein-calorie malnutrition; E11.52 Type 2 diabetes mellitus with diabetic peripheral angiopathy with gangrene; L03.116 Cellulitis of left lower limb; I77.2 Rupture of artery; Z68.1 Body mass index [BMI] 19.9 or less, adult; I69.354 Hemiplegia and hemiparesis following cerebral infarction affecting left non-dominant side; I10 Essential (primary) hypertension; E11.65 Type 2 diabetes mellitus with hyperglycemia; F17.210 Nicotine dependence, cigarettes, uncomplicated; I87.2 Venous insufficiency (chronic) (peripheral); Z96.1 Presence of intraocular lens; Z90.49 Acquired absence of other specified parts of digestive tract; Z98.42 Cataract extraction status, left eye; Z79.899 Other long term (current) drug therapy; Z79.4 Long term (current) use of insulin; Z79.82 Long term (current) use of aspirin
CPT/HCPCS: 10045; 27000; 50010; 50101; 50386; 51412; 53000; 53078; 56524; 56525; 57091; 62110; 62900; 70005

== ENCOUNTER 2016-11-23 05:30 | Inpatient (IN) | payer OTHER ==
[~2016-11-23] VITALS: Ht 170.2 cm; Wt 68.0 kg
--- NOTE | ~2016-11-23 | HC ---
[facility] [place] [address] CONSULTATION Name: CAPRI BOSS Room #: 448-P [facility] IN ..#: [id number] Admission: 11/28/16 Attend Phys: Dakota Chatterjee MD Discharge: Date of : 47 Report #: [id number] THIS REPORT FOR: //name// CC: Dakota Chatterjee NO PCP DATE OF SERVICE: 11/29/2016 HISTORY OF PRESENT ILLNESS: This is a 71-year-old female previously known to me who was readmitted for left above knee amputation. 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 She was noted to develop left gangrene and ended up undergoing a left below knee amputation 11/07/2016. She was able to be discharged directly home where she has caregivers paid for the state. She unfortunately developed worsening gangrene of her below knee residual limb and has now undergone a left above-knee amputation on 11/28/2016. We are consulted regarding rehabilitation issues. PAST MEDICAL HISTORY: Includes diabetes mellitus and hypertension. Past CVA as noted above. History of tobacco abuse. MEDICATIONS: Please see the full medication listing. ALLERGIES: No known drug allergies. SOCIAL HISTORY: Lives in an apartment. There are 2 caregivers that come and stay with her and work 12 hour shifts. They are noted to pick her up and put her into the wheelchair. She is then lifted on to her raised toilets. She was able to do some basic ADLs herself including eating and grooming and some limited dressing activities. REVIEW OF SYSTEMS: No current complaints of chest pain, shortness of breath, abdominal discomfort. She has history of diabetes as noted. PHYSICAL EXAMINATION: GENERAL: A 71-year-old -Lebanese female in no obvious distress. VITAL SIGNS: Last recorded temperature 36.8, pulse 103, respirations 16, blood pressure 122/66. The patient is alert. HEENT: Appeared to be benign. NEUROLOGIC: Facies are symmetric. She has functional range of motion of the right upper extremity without focal weakness. EXTREMITIES: Left upper extremities densely plegic. She has some flexion positioning of her left wrist with some contracture formation and decreased left elbow extension. Left lower extremity reveals the above-knee amputation. She tends to hold that left lower extremity with the hip in a flexed position. Right lower extremity strength is probably a grade 3+ to 4-/5. DTRs are trace [address] [address] CONSULTATION Name: CAPRI BOSS Room #: 448-P [facility] IN [facility].#: [id number] Admission: 11/28/16 Attend Phys: Dakota Chatterjee MD Discharge: Date of : 47 Report #: [id number] to 1. She does have decreased sensation and a stocking distribution and involving proprioception of the right large toe. ASSESSMENT: A 71-year-old female with the following problem list: 1. Gangrene, now status post left above-knee amputation 11/28/2016. 2. Prior left below-knee amputation 11/07/2016. 3. Premorbid cerebrovascular accident with left hemiplegia. 4. Insulin-dependent diabetes mellitus. 5. Hypertension. 6. Tobacco abuse. PLAN: Therapy evaluations are underway. Occupational therapy. She was at a low level premorbidly and had a lot of assistance at her apartment. She was able to return directly home after her below-knee amputation per my review of the records. At this point, we will follow along with you and see how she does. I encouraged her to try to work with the therapists as they come in to see her. Thank you for asking us to assist in this patient's care. <ELECTRONICALLY SIGNED> By: Reza Kamara MD 11/30/16 1232 1453 0525 Reza Kamara MD /[facility]
--- NOTE | ~2016-11-23 | HC ---
[facility] [place] [address] CONSULTATION Name: CAPRI BOSS Room #: 448-P [facility] IN .R.#: [id number] Admission: 11/28/16 Attend Phys: Dakota Chatterjee MD Discharge: Date of : 47 Report #: [id number] THIS REPORT FOR: //name// CC: Dakota Chatterjee NO PCP INFECTIOUS DISEASE CONSULTATION REASON FOR CONSULTATION: I was asked to evaluate concerning left leg gangrene. HISTORY OF PRESENT ILLNESS: The patient was known to me from her previous hospital stay last month where she underwent a left below-knee amputation for gangrene of her foot. She returns now for progressive disease involving the stump. It was noted that during her previous admission, she had a Proteus bacteremia. The tissues to her stump did not heal adequately. She therefore comes back for AKA. She was treated with cefazolin initially, then on Augmentin. She was placed back on cefazolin today. Her initial surgery was on 11/07/2016. No fever, chills or sweats. The patient complains of pain in her lower extremity. She has underlying history of diabetes and peripheral vascular disease. ALLERGIES: None known. MEDICATIONS: As noted on her MAR, now on cefazolin. PAST MEDICAL HISTORY: Diabetes, hypertension, stroke with left hemiparesis. SOCIAL HISTORY: She is a smoker of cigarettes, minimal alcohol intake. Lives alone, has caregivers. FAMILY HISTORY: Noncontributory. REVIEW OF SYSTEMS: No cough, sputum, nausea, vomiting or diarrhea. PHYSICAL EXAMINATION: VITAL SIGNS: Afebrile and hemodynamically stable. GENERAL: She was alert and cooperative. HEENT: Unremarkable. CHEST: Clear. HEART: Regular. ABDOMEN: Soft. EXTREMITIES: Left ROSETTA was wrapped and dry with a Hemovac in place. She had a dry ulcer over the dorsum of her right first toe. LABORATORY STUDIES: Pending. IMPRESSION: A 71-year-old with diabetes and peripheral vascular disease with [facility] [place] [address] CONSULTATION Name: CAPRI BOSS Room #: [address] [place] [address] [place] [facility].#: [id number] Admission: 11/28/16 Attend Phys: Dakota Chatterjee MD Discharge: Date of : 47 Report #: [id number] nonhealing left below-knee amputation, now postop day today above-knee amputation. PLAN: Recommend continuing with Saray, pending review of her operative site. We will obtain laboratory studies including CBC and chemistry. Control blood glucose levels. <ELECTRONICALLY SIGNED> By: Delio Porter MD 12/01/16 1136 1515 0408 Delio Porter MD /nt
--- NOTE | ~2016-11-23 | O ---
[facility] [place] [address] OPERATIVE REPORT Name: CAPRI BOSS Room #: 448-P [facility] IN M.R.#: [id number] Admission: 11/28/16 Attend Phys: Dakota Chatterjee MD Discharge: Date of : 47 Report #: [id number] THIS REPORT FOR: //name// CC: Dakota FISHER PCP DATE OF SERVICE: 11/28/2016 PREOPERATIVE DIAGNOSIS: Left leg gangrene. POSTOPERATIVE DIAGNOSIS: Left leg gangrene. PROCEDURE: Left vtwwr-qpv-ksvt amputation. SURGEON: Dakota Chatterjee M.D. ANESTHESIA: General. ESTIMATED BLOOD LOSS: 200 mL. DRAINS: One Hemovac drain was placed. TOURNIQUET TIME: No tourniquets. COMPLICATIONS: No complications. PATTERNMAKER PLASTER: JCARLOS Pool, critical for positioning and safe performance of the procedure. DESCRIPTION OF PROCEDURE: The patient brought to the operating room, where she was placed under general anesthesia. Once under adequate general anesthesia, her left lower extremity was prepped and draped in a sterile manner. The extremity was elevated and a fishmouth-type incision was then made about the oux-su-pucswh shaft of the femur. This was dissected down to the fascia, which was then incised with the Bovie cautery and exposure was made of the femoral vessels. These were then tagged and ligated with 0 silk suture. The femur itself was then exposed completely with a Cruz elevator and an oscillating saw was then used to transect the femur through its kry-iu-elaghg shaft junction. Once transected, the adductors were then myodesed to the femur with #1 Vicryl suture. The wound was then irrigated copiously and closed with #1 Vicryl in the deep fascia, 2-0 Vicryl in subcutaneous tissues and brittaney were used for the skin. The wound was dressed with Xeroform, 4 x 4s and a sterile soft compressive dressing was placed. A Hemovac drain had been placed prior to wound [address] [address] OPERATIVE REPORT Name: CAPRI BOSS Room #: 448-[facility].#: [id number] Admission: 11/28/16 Attend Phys: Dakota Chatterjee MD Discharge: Date of : 47 Report #: [id number] closure. There were no complications from the procedure. The patient tolerated the procedure well and went to the recovery room without incident. <ELECTRONICALLY SIGNED> By: Dakota Chatterjee MD 12/01/16 1544 [id number] [id number] Dakota Chatterjee MD /nt
--- NOTE | ~2016-11-23 | S ---
[facility] [place] [address] SURGICAL PATH RPT PROCEDURE Name: MARGARITA BOSS Room #: 448-P AD[facility] IN M.R.#: [id number] Admission: 11/28/16 Date of : 49 Discharge: Report #: [id number] Path Case #: [id number] PATHOLOGY REPORT COLLECTION DATE: 11/28/2016 RECEIVED DATE: 11/28/2016 SUBMITTING PHYS: Dr. Dakota Chatterjee OTHER PHYS: SPECIMEN(S) RECEIVED: A.Left above knee amputation * * * * * * * * * * * * FINAL DIAGNOSIS: Extremity, left, above knee amputation: - Viable skin and subcutaneous tissue present at proximal margin of specimen. - Previous amputation stump with ulceration and acute ulcer exudate. - Blood vessels with partial occlusion by calcified atherosclerosis. - Bone underlying ulceration with fibrosis of marrow space. PATHOLOGIST: Francisco Fisher M.D. REPORT ELECTRONICALLY SIGNED BY: Francisco Fisher M.D. DATE/TIME: 11/30/2016 13:30 * * * * * * * * * * * * GROSS PATHOLOGY: Received wrapped in a regular biohazard bag, labeled "Margarita Boss and above knee amputation", is a above the knee amputation stump measuring 21 cm from a previous resection margin to knee, 6.5 cm from knee to anterior skin, with a 4 cm in length femoral bone extending beyond the soft tissue margin. The skin, soft tissue, and bone at the margin appear viable. The previous resection site at the distal shows and shows yellow-francisco necrotic soft tissue measuring 18 x 3 cm with metal brittaney. Sectioning through this show an edematous necrotic soft tissue. The skin is tellez-brown hairless. The vascular resection margin is patent. Maintenance Repairer sections submitted as follows: A1 skin, soft tissue and vascular resection margin (section with black ink = posterior) A2 previous resection margin A3-4 necrotic soft tissue to underlying bone after decalcification (SWS; 11/29/2016) [address] [address] SURGICAL PATH RPT PROCEDURE Name: MARGARITA BOSS Room #: 448-P [facility] IN [facility].#: [id number] Admission: 11/28/16 Date of : 49 Discharge: Report #: [id number] Path Case #: [id number] CLINICAL HISTORY: Infected left leg INITIAL CPT CODE(S): A; 48396 Professional services performed by [facility] [address], [place] [address] Technical services performed by [facility] at [address] [place] [address], [facility] [address] [address]. [facility] [place] [address] PHONE: [phone] DIRECTOR: Cortez Hedrick M.D. * * * END OF REPORT * * *
[~2016-11-23 05:30] MED LIST changes: +AUGMENTIN 875875 MG PO; +HYDROCODON-ACE1 EAC7 PO
[2016-11-25] MEDS ORDERED: NOVOLIN 70100 UNIT/1 SUBQ (10:42)
[2016-11-25] MEDS ORDERED: OXYCONTIN10 M1 PO (10:43)
[2016-11-28 08:00] VITALS: BP 120/69
[2016-11-28 12:05] VITALS: BP 115/78
[2016-11-28 15:00] VITALS: BP 118/104
[2016-11-28 15:15] VITALS: BP 117/57
[2016-11-28 19:55] VITALS: BP 110/54
[2016-11-29 00:10] VITALS: BP 111/63
[2016-11-29 05:50] VITALS: BP 127/78
[2016-11-29 08:22] VITALS: BP 122/66
[2016-11-29 10:39] LABS: HEMATOCRIT 23.7 % (37.0-47.0); HEMOGLOBIN 7.7 gm/dL (12.0-15.0); MCH 26.4 pg (26.0-34.0); MCHC 32.4 g/dL (28.0-37.0); MCV 81.4 fL (80.0-100.0); RBC 2.92 mil/uL (4.20-5.00); RDW 15.5 % (10.5-14.5); WBC 8.2 thou/uL (4.0-11.0)
[2016-11-29 11:55] LABS: ALBUMIN 1.7 g/dL (3.4-5.0); CALCIUM 8.6 mg/dL (8.5-10.1); CREATININE 0.7 mg/dL (0.6-1.0); POTASSIUM 3.4 mmol/L (3.5-5.1); TOTAL BILIRUBIN 0.4 mg/dL (<0.1-1.0); TOTAL PROTEIN 7.2 g/dL (6.4-8.2)
[2016-11-29 16:21] VITALS: BP 116/69
[2016-11-29 18:55] VITALS: BP 124/82
[2016-11-30 03:34] VITALS: BP 102/48
[2016-11-30 08:11] VITALS: BP 117/60
[2016-11-30 14:08] LABS: ABSOLUTE NEUTROPHILS 6.4 thou/uL (1.4-8.2); PLATELET COUNT 252 thou/uL (150-400)
[2016-11-30 14:10] LABS: BASOPHILS 0.5 % (0.0-2.0); EOSINOPHILS 1.2 % (0.0-3.0); HEMOGLOBIN 6.5 gm/dL (12.0-15.0); LYMPHOCYTES 12.5 % (24.0-44.0); MCH 26.6 pg (26.0-34.0); MCHC 32.7 g/dL (28.0-37.0); MCV 81.1 fL (80.0-100.0); MONOCYTES 7.9 % (1.0-8.0); POLYS 77.9 % (36.0-66.0); RBC 2.46 mil/uL (4.20-5.00); RDW 15.4 % (10.5-14.5); WBC 8.2 thou/uL (4.0-11.0)
[2016-11-30 14:23] LABS: MANUAL DIFF NO
[2016-11-30 17:21] VITALS: BP 106/64
[2016-11-30 20:10] VITALS: BP 127/72
[2016-12-01 04:38] VITALS: BP 125/66
[2016-12-01 07:00] LABS: ABSOLUTE NEUTROPHILS 6.3 thou/uL (1.4-8.2)
[2016-12-01 07:02] LABS: BASOPHILS 0.3 % (0.0-2.0); EOSINOPHILS 2.1 % (0.0-3.0); HEMATOCRIT 20.8 % (37.0-47.0); HEMOGLOBIN 6.8 gm/dL (12.0-15.0); LYMPHOCYTES 18.5 % (24.0-44.0); MCH 26.5 pg (26.0-34.0); MCHC 32.6 g/dL (28.0-37.0); MCV 81.4 fL (80.0-100.0); MONOCYTES 8.7 % (1.0-8.0); PLATELET COUNT 269 thou/uL (150-400); POLYS 70.4 % (36.0-66.0); RBC 2.56 mil/uL (4.20-5.00); RDW 15.5 % (10.5-14.5); WBC 8.9 thou/uL (4.0-11.0)
[2016-12-01 07:21] LABS: MANUAL DIFF NO
[2016-12-01 07:26] LABS: ALBUMIN 1.5 g/dL (3.4-5.0); CALCIUM 8.1 mg/dL (8.5-10.1); CREATININE 0.6 mg/dL (0.6-1.0); POTASSIUM 3.7 mmol/L (3.5-5.1); TOTAL BILIRUBIN 0.2 mg/dL (<0.1-1.0); TOTAL PROTEIN 6.3 g/dL (6.4-8.2)
[2016-12-01 08:00] VITALS: BP 121/57
[2016-12-01 14:55] VITALS: BP 112/63; BP 118/67
[2016-12-01 16:00] VITALS: BP 118/67
[2016-12-01 20:54] VITALS: BP 107/50
[2016-12-02 04:15] VITALS: BP 153/62
[2016-12-02 06:26] LABS: HEMATOCRIT 22.6 % (37.0-47.0); HEMOGLOBIN 7.4 gm/dL (12.0-15.0); MCHC 32.6 g/dL (28.0-37.0); RBC 2.72 mil/uL (4.20-5.00); RDW 15.4 % (10.5-14.5); WBC 10.8 thou/uL (4.0-11.0)
[2016-12-02 06:38] LABS: CALCIUM 7.7 mg/dL (8.5-10.1); CREATININE 0.6 mg/dL (0.6-1.0); MAGNESIUM 1.5 mg/dL (1.8-2.4); POTASSIUM 3.9 mmol/L (3.5-5.1)
[2016-12-02 08:40] VITALS: BP 132/72
[2016-12-02 12:14] VITALS: BP 132/72
[2016-12-02] MEDS ORDERED: OXYCONTIN10 M1 PO (13:28)
[2016-12-02] MEDS ORDERED: COLACE 100 MG100 MG PO (13:29)
[2016-12-02] MEDS ORDERED: PERCOCET PO (13:31)
[2016-12-02 13:53] VITALS: BP 132/72
[2016-12-02 15:26] VITALS: BP 132/72
== END 2016-12-02 15:25 | disposition home health service (06) | DRG 853 ==
LOC: PRE 05:30 → TBA 05:30 → PRE 16:29 → TBA 11-28 06:46 → 4S 11-28 06:46 → PRE 11-28 10:59 → 4S 11-28 12:28
PROVIDERS: Family Medicine; Nurse Practitioner Family
PROC: 0Y680ZZ Detachment at Left Femoral Region, Open Approach (ICD-10-PCS; principal; 2016-11-28)
PROC: 02HV33Z Insertion of Infusion Device into Superior Vena Cava, Percutaneous Approach (ICD-10-PCS; 2016-11-29)
PROC: 30243N1 Transfusion of Nonautologous Red Blood Cells into Central Vein, Percutaneous Approach (ICD-10-PCS; 2016-12-01)
DX: A41.9 Sepsis, unspecified organism (principal); E43 Unspecified severe protein-calorie malnutrition; E11.52 Type 2 diabetes mellitus with diabetic peripheral angiopathy with gangrene; I69.354 Hemiplegia and hemiparesis following cerebral infarction affecting left non-dominant side; F17.210 Nicotine dependence, cigarettes, uncomplicated; Z60.2 Problems related to living alone; I10 Essential (primary) hypertension; Z96.1 Presence of intraocular lens; F32.9 Major depressive disorder, single episode, unspecified; F41.9 Anxiety disorder, unspecified; K59.00 Constipation, unspecified; D64.9 Anemia, unspecified; Z89.512 Acquired absence of left leg below knee; Z79.4 Long term (current) use of insulin; Z98.42 Cataract extraction status, left eye; Z68.23 Body mass index [BMI] 23.0-23.9, adult
CPT/HCPCS: 10102; 27000; 50010; 50101; 50386; 51412; 53000; 56524; 56525; 57091; 62110; 62900; 70005

== ENCOUNTER → 2018-08-21 | Outpatient (CLI) | payer OTHER ==
[~2018-08-21] MED LIST changes: +COLACE 100 MG100 MG PO; +NOVOLIN 70100 UNIT/1 SUBQ; +OXYCONTIN10 M1 PO; +PERCOCET PO
== END ==
LOC: HYPER 06:40
DX: S80.811D Abrasion, right lower leg, subsequent encounter (principal); S80.821D Blister (nonthermal), right lower leg, subsequent encounter; G81.02 Flaccid hemiplegia affecting left dominant side; I10 Essential (primary) hypertension; I73.9 Peripheral vascular disease, unspecified; I87.2 Venous insufficiency (chronic) (peripheral); F17.200 Nicotine dependence, unspecified, uncomplicated; Z86.73 Personal history of transient ischemic attack (TIA), and cerebral infarction without residual deficits; X58.XXXD Exposure to other specified factors, subsequent encounter

== ENCOUNTER → 2018-09-04 | Outpatient (CLI) | payer OTHER | LOC: HYPER 06:43 | DX: S80.811D Abrasion, right lower leg, subsequent encounter (principal); S80.821D Blister (nonthermal), right lower leg, subsequent encounter; I10 Essential (primary) hypertension; I87.2 Venous insufficiency (chronic) (peripheral); I73.9 Peripheral vascular disease, unspecified; G81.02 Flaccid hemiplegia affecting left dominant side; F17.200 Nicotine dependence, unspecified, uncomplicated; Z86.73 Personal history of transient ischemic attack (TIA), and cerebral infarction without residual deficits; X58.XXXD Exposure to other specified factors, subsequent encounter ==

== ENCOUNTER 2019-01-09 16:54 | Inpatient (IN) | payer OTHER ==
[~2019-01-09] VITALS: Ht 170.2 cm; Wt 49.0 kg
[~2019-01-09 16:54] MED LIST changes: -ASPIR 8181 MG PO; -AUGMENTIN 500-1 EACH PO; -CLOPIDOGREL75 MG PO
[2019-01-09 18:00] VITALS: BP 108/43
--- NOTE | 2019-01-09 19:54 | NUR ---
PATIENT IN APPROX. 1730. THIS NURSE WAS NOT GIVEN FORMAL REPORT ON PATIENT. CHARGE NURSE AND METAL TUBE CUTTER STATED THEY WERENT GIVEN REPORT ON PATIENT AND DID NOT KNOW WHY PATIENT WAS HERE. PATIENT WAS BRUNG TO ROOM BY SOMEONE AND DID NOT INFORM FLOOR STAFF. PATIENT WAS CHECKED ON BY THIS NURSE AND VITALS TAKEN BY PRINCIPAL PLANNER. NO SIGNS OF DISTRESS, PATIENT DENIED SOA AND PAIN. PATIENT STATED SHE WANTED SOMETHING TO EAT.
[2019-01-10 00:36] LABS: EOSINOPHILS 4.4 % (0.0-3.0); HEMATOCRIT 31.7 % (37.0-47.0); LYMPHOCYTES 43.6 % (24.0-44.0); MCH 26.7 pg (26.0-34.0); MCHC 31.5 g/dL (28.0-37.0); MCV 84.6 fL (80.0-100.0); MONOCYTES 6.5 % (1.0-8.0); PLATELET COUNT 220 thou/uL (150-400); POLYS 44.5 % (36.0-66.0); RBC 3.75 mil/uL (4.20-5.00); RDW 15.4 % (10.5-14.5); WBC 4.5 thou/uL (4.0-11.0)
[2019-01-10 00:52] LABS: ALBUMIN 3.4 g/dL (3.4-5.0); CALCIUM 9.4 mg/dL (8.5-10.1); CREATININE 1.3 mg/dL (0.6-1.0); MAGNESIUM 1.9 mg/dL (1.8-2.4); POTASSIUM 5.2 mmol/L (3.5-5.1); TOTAL BILIRUBIN 0.2 mg/dL (<0.1-1.0); TOTAL PROTEIN 8.5 g/dL (6.4-8.2)
[2019-01-10 02:20] VITALS: BP 108/43
[2019-01-10 04:04] VITALS: BP 100/59
--- NOTE | 2019-01-10 05:12 | NUR ---
PT CAME UP TO THE UNIT AT 1700.PT ADMINITED WITH ISCHEMIC LEFT RT TOES AND CELLULITIS UNCONTROLLED DIABETES.PT HAS A LT AKA.PT IS A/O X4.PT IS INCONTINENT AND NON AMBULATIORY.PT IS ON OCTAVIO ACCUCHECKS AND ON A LOW CARB DIET.PT PAIN IS CONTROLLED WITH FENTANYL AND OXYCODONE.PT HAS AN IV ACCESS ON RAC WITH 0.9%NS AT 125ML/HR.CONTINUE TO MONITOR PT TILL EOS
[2019-01-10 08:30] VITALS: BP 138/73
[2019-01-10 15:26] VITALS: BP 126/64
--- NOTE | 2019-01-10 17:26 | NUR ---
INITIAL ASSESSMENT: Received high risk nursing referral. SW reviewed chart and spoke with nursing and attending physician. Pt was a direct admission from the wound care office at [facility] due to chronic right toe wounds. Pt with hx of DM/CVA/left BKA. Pt is on IV abx. Podiatry consulted. Pt with possible osteomyelitis of right toe wounds. SW attempted to meet with pt several times this afternoon. Pt was sleeping soundly during time of visit. KEILA spoke with pt's cousin, Shirley, via phone. Introduced role of SW. Pt normally lives at home in [place] area. Pt has been at [facility] for about month for short term rehab. Pt's cousin is unsure if pt will stay there for LTC or return home. senior planner to fax clinical info to [facility] tomorrow. SW will follow up with pt at a later time and assist as needed with discharge planning.
--- NOTE | 2019-01-10 20:32 | NUR ---
Assumed patient care at 0715. Patient's blood sugars have been running low. She has been drinking orange juice and having snacks in between meals due to this. Dr Mike discontinued her scheduled Insulin and has put her on Ensure supplements 3 x's/day. Patient needs prompting to finish these. All other vital signs have been within normal limits. She has been tolerating her IV Antibiotics well. POC followed. On-coming nurse informed about blood sugar readings.
[2019-01-10 20:38] VITALS: BP 98/50
[2019-01-11 00:07] LABS: GLYCOHEMOGLOBIN (HGB A1C) 5.8 % (4.8-5.6)
--- NOTE | 2019-01-11 04:47 | NUR ---
ASSESSMENT: PT REMAIN ALERT AND ORIENT TIMES THREE. PT LIKES TO TALK AND APPEARS TO LIKE HAVING A EAR TO LISTEN TO HER PAST HISTORY AND CURRENT POC. PT REFUSED FENTANYL DURING THE NIGHT, BUT DID REQUEST OXYCODONE WHEN IT WAS DUE. A NEW IV WAS INITATED IN RIGHT IJ, 22 GAUGE. VSS, AFEBRILE. LEFT BKA WAS ELEVATED UPON PILLOWS, LEFT ARM IS FLACCID. RIGHT LE EXT CELLULITIS. WAS ELEVATED UPON PILLOWS. BLOOD SUGAR WAS 100, NO SS REQUIRED. SLOW PROGRESS TOWARDS DC GOALS, WILL CONTINUE TO MONITOR.
[2019-01-11 09:25] VITALS: BP 100/50
--- NOTE | 2019-01-11 14:03 | NUR ---
DISCHARGE PLANNING. POST ACUTE RECOMMENDED FOR PATIENT AT DISCHARGE. PATIENT REFERRAL FAXED TO [facility] PER REQUEST. PATIENT HAS BEEN TO [facility] IN THE PAST AND IS AGREEABLE TO RETURN FOR POST ACUTE CARE NEEDS. CALL PLACED TO MONIQUE [facility] ADMISSIONS TO NOTIFY. VM LEFT FOR [facility] REGARDING PATIENT REFERRAL. AWAITING RESPONSE. FOLLOWING.
--- NOTE | 2019-01-11 15:12 | NUR ---
CLINICAL UPDATE SENT TO [facility]. IT IS ANTICIPATED THAT PT WILL BE HERE OVER THE WEEKEND. CM TO FOLLOW INDICATED WITH DC PLANNING.
[2019-01-11 15:52] VITALS: BP 120/60
[2019-01-11 19:05] VITALS: BP 116/53
--- NOTE | 2019-01-11 20:39 | NUR ---
Assumed pt care this am, pt is confused and only alert to self. Pt is unkept and refuses to be cleaned up. Pt is very needs and would call out numerous times during the day for small things that she would do on her own and find ways to keep staff in the room. Left above the knee amputation, right LE cellulitis and right foot is dislocated. VS have been stable and POC followed. MRI done and consent signed for Lakisha rios on U/S to be done on 01/[address] Benitez. VS have been stable, no signs or verbalizationbs of distress have been noted. POC followed.
--- NOTE | 2019-01-12 06:13 | NUR ---
patient aox4 makes needs known. patient has been npo since midnight. patient right foot has a dressing, dressing is c/d/i. patient incontient pericare and barrier cream applied as needed. patient turned q 2hours as patient can torrelate. pain controlled this shift.patient in bed asleep at this time breathing regular and unlaboured.
[2019-01-12 08:01] VITALS: BP 114/59
[2019-01-12 15:37] VITALS: BP 103/50
[2019-01-12 16:05] LABS: URINE BILIRUBIN NEGATIVE (Negative); URINE BLOOD NEGATIVE (Negative); URINE CLARITY CLEAR; URINE COLOR YELLOW; URINE GLUCOSE-RANDOM* NEGATIVE (Negative); URINE KETONES NEGATIVE (Negative); URINE LEUKOCYTES-REFLEX NEGATIVE (Negative); URINE NITRITE-REFLEX NEGATIVE (Negative); URINE PROTEIN (DIPSTICK) NEGATIVE (Negative); URINE SPECIFIC GRAVITY 1.015 (1.005-1.035); URINE UROBILINOGEN 0.2 E.U./dl (0.2-1.0)
--- NOTE | 2019-01-12 17:18 | NUR ---
Assumed pt care this am, vs stable. Right foot dressing c/d/i/. Pt has been incontinent but was able to collect a urine sample and was sent down to the lab. Pain has been controlled and pt has been sleeping for most of the afternoon. No signs or verbalizations of distress have pamela noted.
[2019-01-12 20:50] VITALS: BP 110/41
[2019-01-13 01:53] VITALS: BP 110/41
--- NOTE | 2019-01-13 06:48 | NUR ---
PT IS A/O X4.PT IS NONAMBULATORY WITH LT BKA .PT REFUSED GABAPENTINE YESTERDAY.PT PAIN MGT WITH FENTANYL AND OXY.PT IS TO BE NPO MIDNIGHT.CONTINUE TO MONITOR TILL EOS
[2019-01-13 08:47] VITALS: BP 132/61
[2019-01-13 13:36] LABS: CALCIUM 9.4 mg/dL (8.5-10.1); CREATININE 0.9 mg/dL (0.6-1.0); POTASSIUM 5.3 mmol/L (3.5-5.1)
[2019-01-13 17:35] VITALS: BP 98/53
--- NOTE | 2019-01-13 19:10 | NUR ---
Assumed pt care this am, pt is non ambulatory with contractures on her right ankle and foot. Some medications in the am were refused and pt stated she knows what she needs and will manage it based on how she feels, all blood sugr checks have been refused. Dressing is c/d/i and changed today. Goldie care done through out the day since pt is incontinent. Pt refuse all interventions and medications to promotea bm and stated she does not want to have a bm to soil herself. Pt still refused heparin and is fully aware of the risks but prefers to take the aspirin. Left sided paralysis is noted, tray set up is required and other assists through out the day. Dressing changed for the IV on the right EJ. Pt refused oral or denture care and a bath. No signs or verbalizations of distress have been noted. POC followed, endorsed to the night nurse, pt is to be npo midnight onwards for her procedure tomorrow. Consent signed and on the chart.
[2019-01-14 05:42] LABS: ABSOLUTE NEUTROPHILS 2.3 thou/uL (1.4-8.2); BASOPHILS 0.6 % (0.0-2.0); EOSINOPHILS 5.2 % (0.0-3.0); HEMATOCRIT 30.3 % (37.0-47.0); HEMOGLOBIN 9.6 gm/dL (12.0-15.0); LYMPHOCYTES 35.1 % (24.0-44.0); MCHC 31.7 g/dL (28.0-37.0); MCV 85.3 fL (80.0-100.0); MONOCYTES 8.4 % (1.0-8.0); PLATELET COUNT 232 thou/uL (150-400); POLYS 50.7 % (36.0-66.0); RBC 3.55 mil/uL (4.20-5.00); RDW 15.4 % (10.5-14.5); WBC 4.6 thou/uL (4.0-11.0)
[2019-01-14 05:55] LABS: ALBUMIN 2.6 g/dL (3.4-5.0); CALCIUM 9.9 mg/dL (8.5-10.1); CREATININE 0.9 mg/dL (0.6-1.0); POTASSIUM 5.6 mmol/L (3.5-5.1); TOTAL BILIRUBIN 0.2 mg/dL (<0.1-1.0); TOTAL PROTEIN 7.3 g/dL (6.4-8.2)
[2019-01-14 06:34] VITALS: BP 134/62
--- NOTE | 2019-01-14 07:31 | NUR ---
PT IS A/O X4.PT REFUSE DOCUSATE AND STATED SHE HAD A LARGE BM.PT WAS NPO MIDNIGHT AND IS TO DO ANGIOGRAM ON RT FOOT THIS MORNING.PT NON AMBULATORY.CONTINUE POC
--- NOTE | 2019-01-14 12:32 | NUR ---
KEILA reviewed chart and spoke with nursing and attending physician. Pt is currently off the unit having an angiogram. Pt may need possible amputation of right toes. business planner to fax clinical updates to [facility]. Tori liaison to do onsite evaluation. KEILA is following to assist as needed with discharge planning.
--- NOTE | 2019-01-14 14:30 | HC ---
[facility] [place] [address] CONSULTATION Name: CAPRI BOSS Room #: 464-P [facility] IN .R.#: [id number] Admission: 01/09/19 Attend Phys: Gwen Mike MD Discharge: Date of : 49 Report #: [id number] THIS REPORT FOR: //name// CC: Gwen MARINA unknown DATE OF SERVICE: 01/11/2019 INFECTIOUS DISEASES CONSULTATION REASON FOR CONSULTATION: Evaluate gangrene of right foot. HISTORY OF PRESENT ILLNESS: The patient is a 73-year-old with peripheral vascular disease, diabetes, hypertension, previous stroke, who had had a left AKA several years ago. She has had issues with wounds to her toes over the last several months. Six months ago, she broke her ankle. She did not have this fixed. She now has a significant ankle deformity. She has no significant pain. Denies any fever, chills or sweats. She presents now due to worsening toe wounds. She was evaluated previously and her physicians recommended amputation. The patient sought further consultation with Dr. Curtis who recommended inpatient care with vascular evaluation. Denies any fever, chills or sweats. Her blood glucose control has been good. She does smoke cigarettes. She has been living in a [facility]. ALLERGIES: None known. MEDICATIONS: Have included amlodipine, oxybutynin, insulin, oxycodone and was started on vancomycin and Zosyn. PAST MEDICAL HISTORY: Diabetes, heart disease, hypertension, COPD, peripheral vascular disease, stroke with left hemiparesis, chronic wounds to her right foot, cataract surgery, cholecystectomy, left lower extremity arterial bypass, left AKA. FAMILY HISTORY: Diabetes, hypertension, vascular disease. SOCIAL HISTORY: Smoker of cigarettes. No significant alcohol intake. Lives in a rehabilitation center. REVIEW OF SYSTEMS: Denies any headache or neurologic change acutely. No mood changes. No bleeding disorder. No adenopathy, no chest pain or palpitations. No cough or sputum production. No GI or complaints. Denies any allergy issues. No other skin issues other than what is noted above. Her diabetes has been under reasonable control. [facility] [address] [address] CONSULTATION Name: CAPRI BOSS Room #: 464-P [facility] IN .R.#: [id number] Admission: 01/09/19 Attend Phys: Gwen Mike MD Discharge: Date of : 49 Report #: [id number] PHYSICAL EXAMINATION: VITAL SIGNS: Afebrile, hemodynamically stable. GENERAL: Alert, pleasant, cooperative. Very thin in nature. SKIN: Few areas of eschar to the right foot and ankle region. No evidence of drainage noted. Toes fourth and fifth did have small wounds present. There was swelling to the toes. No palpable adenopathy. HEENT: Eyes without scleral icterus. Mouth without mucositis. She has dentures. NECK: Supple, with no thyromegaly. LUNGS: Decreased breath sounds bilaterally with no adventitial sounds. HEART: Regular, without murmur, gallop or rub. ABDOMEN: Soft, nontender, no hepatosplenomegaly or mass. EXTREMITIES: With hemiparesis on the left with contractured left upper extremity. AKA on the left. Right lower extremity had varus deformity at the ankle. It was unstable in appearance. Toes were dark in color and swelling, mostly of her fourth and fifth toes. She had a distal amputation of the fourth toe. Sensation was diminished in her foot. Could not palpate any pulses below the knee. Pulse in the femoral region was 1+. BACK: Nontender. GENITORECTAL: Not performed. PSYCHIATRIC: Mood normal with no anxiety or depression symptoms. LABORATORY STUDIES: Reviewed. X-rays reviewed. Blood cultures reviewed. IMPRESSION: 1. A 73-year-old with diabetes and peripheral vascular disease, has evidence of gangrenous changes to her distal right foot. She has a high-grade distal arterial obstructive disease. 2. Diabetes. 3. Right ankle fracture with nonunion. 4. Hypertension. 5. Tobacco use. 6. Previous stroke with left hemiparesis. 7. Previous left above-knee amputation. RECOMMENDATIONS: 1. The patient is to have arteriogram with intervention as appropriate on Monday. We will continue IV antibiotic therapy for gangrenous changes involving her right toes. Hopefully, with revascularization, this will improve. She has fracture nonunion of the tibia and fibula, which is of concern. She states she uses her leg to stand and pivot. Unclear how long this will last for the ankle [address] [address] CONSULTATION Name: CAPRI BOSS Room #: 464-P [facility] IN ..#: [id number] Admission: 01/09/19 Attend Phys: Gwen Mike MD Discharge: Date of : 49 Report #: [id number] does appear unstable. Ultimately, expectation with all these comorbidities will require at least a BKA. She was not interested in this opinion at the present time. 2. Discontinue tobacco use. 3. Control diabetes. <ELECTRONICALLY SIGNED> By: Delio Porter MD 01/14/19 1430 [id number] Delio Porter MD /nt
--- NOTE | 2019-01-14 19:46 | NUR ---
Assumed patient care at 0715. Patient was non-compliant this am, refusing labwork and blood sugars. Patient tried to get out of going to get her Angiogram as well but this nurse convinced her to go after some education. Patient has a manx dressing in left lower abdomen that is clean, dry et intact; area is soft. Patient has been compliant and pleasant this evening. Report given to TRUNG Rodriguez.
[2019-01-14 21:32] VITALS: BP 140/68
[2019-01-15 05:46] LABS: BASOPHILS 0.5 % (0.0-2.0); EOSINOPHILS 3.6 % (0.0-3.0); HEMATOCRIT 31.8 % (37.0-47.0); LYMPHOCYTES 13.4 % (24.0-44.0); MCH 26.9 pg (26.0-34.0); MCHC 31.6 g/dL (28.0-37.0); MCV 85.3 fL (80.0-100.0); MONOCYTES 7.2 % (1.0-8.0); PLATELET COUNT 213 thou/uL (150-400); POLYS 75.3 % (36.0-66.0); RBC 3.73 mil/uL (4.20-5.00); RDW 15.2 % (10.5-14.5); WBC 5.3 thou/uL (4.0-11.0)
[2019-01-15 06:11] LABS: ALBUMIN 2.7 g/dL (3.4-5.0); CALCIUM 9.7 mg/dL (8.5-10.1); CREATININE 1.1 mg/dL (0.6-1.0); MAGNESIUM 1.8 mg/dL (1.8-2.4); PHOSPHORUS 4.5 mg/dL (2.5-4.9); TOTAL BILIRUBIN 0.2 mg/dL (<0.1-1.0); TOTAL PROTEIN 7.8 g/dL (6.4-8.2)
--- NOTE | 2019-01-15 07:43 | NUR ---
progress pt sleeping first part of shift awoke with verbal stimuli but returned to sleep after around 2 am she woke and requested pain medication. oxycodone given x 1 scheduled fentanyl given as ordered with effect. repositioned self in bed refused accucheck and protonix. continue poc.
[2019-01-15 19:30] VITALS: BP 88/49
--- NOTE | 2019-01-15 19:51 | NUR ---
Assumed patient care at 0715. Patient's vital signs have been stable throughout this shift. Patient has refused to get her blood sugar taken x's 1, has refused her Insulin x's 1. Patient did allow her blood sugar to be taken before dinnertime; she did not require Insulin coverage at this time. Patient requested her Fentanyl this am, as well as her Nicotine Patch. This nurse educated patient that Fentanyl is scheduled with the next dose being due at 1300, and, told her thather Nicotime Patch is scheduled at HS. Patient argued about this. When this nurse brought Fentanyl to patient at 1300; patient refused it, stating, "I will call you when I need it." This dose was wasted as patient did not call back requesting it. Report given to TRUNG Rodriguez.
[2019-01-16 00:14] VITALS: BP 104/51
--- NOTE | 2019-01-16 06:08 | NUR ---
ADMIT PT ADMITTED FROM ED TO 4 [facility]EST FOR BILATERAL GREAT TOES OSTEOMYELITIS. ORIENTED TO ROOM CALL LIGHT SYSTEM AND POC. PT R/V UNDERSTANDING.PT ANXIOUS AND REPORTS PAIN AT A LEVEL OF 8 TO 10 15 MG OXYCODONE GIVEN WITH SOME EFFECT. IVF'S INITIATED, AND IV ANTIBIOTICS GIVEN ORDERED. BP HIGH 160'/102 THEN ON RECHECK 157/117 NOTIFIED CHRISTEN ROJAS AND ORDERED TO GIVE AM NORVASC EARLY HYDRALAZINE WAS GIVEN WITH NO EFFECT. MEDICATED PT FOR PAIN SETTLING DOWN A LITTLE VERY ANXIOUS REGARDING DIAGNOSES AND POC.
[2019-01-16 07:43] VITALS: BP 128/62
[2019-01-16 07:52] VITALS: BP 128/62
--- NOTE | 2019-01-16 08:13 | NUR ---
PROGRESS PT A/O X4 AWAKE MOST OF SHIFT USING CALL LIGHT FREQUENTLY. PAIN CONTROLLED WITH SCHEDULED MEDS AND PRN OXYCODONE. REFUSES ACCUCHECKS AND SSI, INCONTINENT OF URINE X 4 LAST NIGHT HOPES TO DC HOME NOW THAT ANTIBIOTICS WILL BE ORAL.
[2019-01-16] MEDS ORDERED: AUGMENTIN 500-1 EACH PO (09:54)
[2019-01-16] MEDS ORDERED: ASPIR 8181 MG PO (09:54)
[2019-01-16] MEDS ORDERED: CLOPIDOGREL75 MG PO (09:54)
--- NOTE | 2019-01-16 11:59 | NUR ---
Assumed pt care at 7am.Pt in bed alert and oriented x4.Assessment completed. vss.Pt refused insulin at breakfast and finger stick at lunch.Pt tolerated med and diet.Complete bath and bed change done early this shift.Dr Moncada here,dc order noted.Report off to Tahmina joseph at [facility].Pt will be dc between 1530 &1600 today per van.[place] Setter assisted pt with packing.Pain med given for generalized body ache with partial relief.Will continue to monitor.
--- NOTE | 2019-01-16 13:07 | NUR ---
CARE TEAM INDICATED THAT PT IS MEDICALLY STABLE TO DC BACK TO [facility] THIS DAY. CM NOTIFIED PT AND SHE WAS VERY EXCITED TO BE RETURNING. PT HAS OWN WC HERE AT HOSPITAL. PT INDICATED SHE WOULD NOTIFY HER COUSIN OF HER DC. CHART COPY ORDERED. ORDERS TO BE FAXED. [facility] ARRANGED FOR [id number]. NO OTHER CM INTERVENTION INDICATED. CASE CLOSED.
--- NOTE | 2019-01-27 11:57 | HC ---
[facility] [place] [address] CONSULTATION Name: CAPRI BOSS Room #: 464-P [facility] IN M.R.#: [id number] Admission: 01/09/19 Attend Phys: Gwen Mike MD Discharge: 01/16/19 Date of : 49 Report #: [id number] THIS REPORT FOR: //name// CC: Gwen Mike [facility] unknown DATE OF SERVICE: 01/14/2019 HISTORY OF PRESENT ILLNESS: The patient is a 73-year-old female patient admitted to the hospital with ulcerations on her right toes. She has been in the rehab facility for the last month. She is nonambulatory due to previous CVA and left-sided weakness, and has a prior left above-knee amputation. She has previously been seen for her wounds at [facility] months ago and recently been seen here at [facility] for wound care. PAST MEDICAL HISTORY: Positive for history of cholecystectomy, type 2 diabetes mellitus, hypertension, stroke with left-sided weakness, persistent chronic ulcers on the right foot, previous ulcers on the left leg, status post left below knee amputation. She has a history of peripheral arterial disease. She is a current smoker. SOCIAL HISTORY: The patient denies alcohol use. Smokes half pack of cigarettes for the last 25 years. FAMILY HISTORY: Positive for diabetes and hypertension. ALLERGIES: None. MEDICATIONS: Include oxycodone, amlodipine, oxybutynin and insulin. REVIEW OF SYSTEMS: CONSTITUTIONAL: The patient denies fever, chills or weight loss. NEUROLOGICAL: The patient does have left-sided weakness. No new focal weakness, numbness or tingling noted. EYES: The patient denies visual changes, redness, or drainage. ENT: The patient denies earache, nasal drainage, sore throat. CARDIOVASCULAR: The patient denies chest pain, palpitations or diaphoresis. PULMONARY: Without cough or shortness of breath. GASTROINTESTINAL: The patient denies nausea, vomiting, diarrhea or abdominal pain. ORTHOPEDIC: The patient is aware of the ulcerations on her right foot, has mild pain associated with these. Other systems in a 14-point review of systems are negative. PHYSICAL EXAMINATION: VITAL SIGNS: At this time include temperature 36.1, pulse 85, respiratory rate [facility] [address] [place] [address] CONSULTATION Name: CAPRI BOSS Room #: [address] [place] [address] [place] [facility].#: [id number] Admission: 01/09/19 Attend Phys: Gwen Mike MD Discharge: 01/16/19 Date of : 49 Report #: [id number], blood pressure of 134/62. GENERAL: This is a chronically ill-appearing female patient who appears to be in minimal distress. HEENT: Head normocephalic. Nose and throat are clear. NECK: Supple. LUNGS: Clear. HEART: Regular rhythm. ABDOMEN: Soft, bowel sounds present. EXTREMITIES: Examination of the lower extremities demonstrate what appeared to be vascular type ulceration on the right fifth toe as well as the dorsal right great toe. Both areas are relatively superficial and appear to be clean with some granulation tissue. NEUROLOGIC: The patient is alert and oriented. She has diminished light touch sensation involving her right lower extremity. LABORATORY DATA: Includes sodium 136, potassium 5.6, chloride 104, CO2 of 25, BUN 39, creatinine 0.9, glucose 121. Total protein is 7.3, albumin is 2.6. White blood cell count 4.6 with hemoglobin of 9.6. CLINICAL IMPRESSION: 1. Vascular ulcer to the right fifth toe and right great toe. 2. Peripheral arterial disease. The patient is status post right superficial femoral artery stent recently. 3. Diabetes mellitus. RECOMMENDATIONS: At this point in time, we recommend moisturizer to the dry skin on her lower extremities, Xeroform gauze to the great toe and fifth toe. She will need aggressive nutritional support, continuation of current medications. She may require some debridement along the way, will be cautious with this as she may not have a good vascularity to support wound healing. I appreciate being asked to see her in consultation. <ELECTRONICALLY SIGNED> By: Moy Ward MD 01/27/19 1157 15 [id number] Moy Ward MD /nt
== END 2019-01-16 16:20 | DRG 270 ==
LOC: 4W 16:54
PROVIDERS: Internal Medicine; Nurse Practitioner; Nurse Practitioner Acute Care; ADMIT Hospitalist
PROC: B4181ZZ Fluoroscopy of Bilateral Renal Arteries using Low Osmolar Contrast (ICD-10-PCS; principal; 2019-01-14)
PROC: 047K34Z Dilation of Right Femoral Artery with Drug-eluting Intraluminal Device, Percutaneous Approach (ICD-10-PCS; principal; 2019-01-14)
PROC: X27 New Technology, Cardiovascular System, Dilation (ICD-10-PCS; principal; 2019-01-14)
PROC: 04CM3ZZ Extirpation of Matter from Right Popliteal Artery, Percutaneous Approach (ICD-10-PCS; principal; 2019-01-14)
PROC: 04CP3ZZ Extirpation of Matter from Right Anterior Tibial Artery, Percutaneous Approach (ICD-10-PCS; principal; 2019-01-14)
PROC: B41D1ZZ Fluoroscopy of Aorta and Bilateral Lower Extremity Arteries using Low Osmolar Contrast (ICD-10-PCS; principal; 2019-01-14)
DX: I70.261 Atherosclerosis of native arteries of extremities with gangrene, right leg (principal); E43 Unspecified severe protein-calorie malnutrition; L03.116 Cellulitis of left lower limb; I69.354 Hemiplegia and hemiparesis following cerebral infarction affecting left non-dominant side; N17.9 Acute kidney failure, unspecified; Z68.1 Body mass index [BMI] 19.9 or less, adult; E11.52 Type 2 diabetes mellitus with diabetic peripheral angiopathy with gangrene; A69.8 Other specified spirochetal infections; J44.9 Chronic obstructive pulmonary disease, unspecified; F17.210 Nicotine dependence, cigarettes, uncomplicated; Z96.1 Presence of intraocular lens; F32.9 Major depressive disorder, single episode, unspecified; F41.9 Anxiety disorder, unspecified; R53.81 Other malaise; N32.81 Overactive bladder; I25.10 Atherosclerotic heart disease of native coronary artery without angina pectoris; S82.891A Other fracture of right lower leg, initial encounter for closed fracture; X58.XXXA Exposure to other specified factors, initial encounter; M79.662 Pain in left lower leg; I12.9 Hypertensive chronic kidney disease with stage 1 through stage 4 chronic kidney disease, or unspecified chronic kidney disease; N18.3 Chronic kidney disease, stage 3 (moderate); D63.8 Anemia in other chronic diseases classified elsewhere; E11.22 Type 2 diabetes mellitus with diabetic chronic kidney disease; E11.621 Type 2 diabetes mellitus with foot ulcer; L97.519 Non-pressure chronic ulcer of other part of right foot with unspecified severity; Z89.612 Acquired absence of left leg above knee; Z79.899 Other long term (current) drug therapy; Z79.4 Long term (current) use of insulin; Z98.42 Cataract extraction status, left eye; Z90.49 Acquired absence of other specified parts of digestive tract; Z83.3 Family history of diabetes mellitus; Z82.49 Family history of ischemic heart disease and other diseases of the circulatory system; Z89.512 Acquired absence of left leg below knee; Z71.6 Tobacco abuse counseling; Z59.0 Homelessness; Z99.3 Dependence on wheelchair; Y93.89 Activity, other specified; Y92.89 Other specified places as the place of occurrence of the external cause; Y99.8 Other external cause status
CPT/HCPCS: 10047

== ENCOUNTER → 2019-01-09 | Outpatient (CLI) | payer OTHER ==
[~2019-01-09] MED LIST changes: +ASPIR 8181 MG PO; +AUGMENTIN 500-1 EACH PO; +CLOPIDOGREL75 MG PO
== END ==
LOC: HYPER 08:23
DX: L97.511 Non-pressure chronic ulcer of other part of right foot limited to breakdown of skin (principal); I73.9 Peripheral vascular disease, unspecified; I10 Essential (primary) hypertension; G81.02 Flaccid hemiplegia affecting left dominant side; F17.200 Nicotine dependence, unspecified, uncomplicated; Z95.828 Presence of other vascular implants and grafts; Z89.612 Acquired absence of left leg above knee; Z86.73 Personal history of transient ischemic attack (TIA), and cerebral infarction without residual deficits

== ENCOUNTER → 2019-02-18 | Outpatient (CLI) | payer OTHER ==
[~2019-02-18] MED LIST changes: +ASPIR 8181 MG PO; +AUGMENTIN 500-1 EACH PO; +CLOPIDOGREL75 MG PO
== END ==
LOC: HYPER 02-11 16:35
DX: L97.511 Non-pressure chronic ulcer of other part of right foot limited to breakdown of skin (principal); I10 Essential (primary) hypertension; I73.9 Peripheral vascular disease, unspecified; I87.2 Venous insufficiency (chronic) (peripheral); G62.9 Polyneuropathy, unspecified; G81.02 Flaccid hemiplegia affecting left dominant side; F17.200 Nicotine dependence, unspecified, uncomplicated; Z86.73 Personal history of transient ischemic attack (TIA), and cerebral infarction without residual deficits